=== PATIENT | female | born 1975 | race Caucasian/White ===

== ENCOUNTER 2017-08-05 08:18 | Emergency (ER) | payer OTHER ==
[2017-08-05] MEDS ORDERED: KETOROLAC 30 MG/ML INJ ONE (09:08)
[2017-08-05] MEDS ORDERED: ONDANSETRON 4 MG/2 ML VIAL ONE (09:08)
[2017-08-05] MEDS ORDERED: NA CHLORIDE 0.9% 1,000 ML ONE ×2 (09:09→10:13)
[2017-08-05] MEDS ORDERED: FAMOTIDINE 20 MG/2 ML VIAL IV ONE (09:09)
[2017-08-05 09:12] LABS: Absolute Lymphocytes (CBC) 1.8 K/uL (0.7-4.9); Absolute Monocytes 1.2 K/uL (0.1-1.3); Absolute Neutrophil 6.8 K/uL (1.8-8.0); Basophils % 0.8 % (0-1.3); Eosinophils % 1.3 % (0-4.4); Hematocrit 47.4 % (36.0-45.0); Lymphocytes % 18.1 % (15.3-44.8); MCH 29.2 pg (27.0-35.0); MCV 85.4 fL (80-100); MPV 9.2 fL (7.6-11.3); RBC Red Blood Cell Count 5.55 M/uL (3.86-4.86)
[2017-08-05 09:26] LABS: Potassium 3.6 mEq/L (3.6-5.0)
[2017-08-05 09:32] LABS: Albumin 4.1 g/dL (3.2-5.5); Bilirubin Direct 0.1 mg/dL (0-0.2); Bilirubin Total 0.7 mg/dL (0.3-1.2); Protein, Total 7.4 g/dL (6.0-8.3)
[2017-08-05 11:05] LABS: Urine Blood NEGATIVE (NEG); Urine Glucose NEGATIVE (NEG); Urine Protein 2+ (NEG); Urine Specific Gravity >1.030 (1.005-1.030)
--- NOTE | 2017-08-05 11:29 | EDPHYS ---
Physician Documentation [facility] Name: Zahraa Pagan Age: 42 yrs Sex: Female : 1975 Arrival Date: 08/05/2017 Time: 08:21 Bed 8 Private MD: IZABELLA CRAWFORD ED Physician Ashwin Langston HPI: 08/05 10:33 This 42 yrs old Female presents to ER via Ambulatory with complaints of wa Vomiting/Diarrhea. 10:33 The patient presents to the emergency department with nausea, vomiting, diarrhea, that wa is continuous. Onset: The symptoms/episode began/occurred 3 day(s) ago, denies abd pain to me. admits to sore throat. Possible causes: bad food exposure, sick contacts, none. The symptoms are aggravated by nothing. The symptoms are alleviated by food . Associated signs and symptoms: Pertinent positives: diarrhea, nausea, vomiting, Pertinent negatives: abdominal pain, dysuria, fever. Severity of symptoms: At their worst the symptoms were moderate in the emergency department the symptoms are unchanged. The patient has not experienced similar symptoms in the past. The patient has not recently seen a physician. 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 - Social history:: Patient/guardian denies using alcohol, street drugs, IV drugs. - Family history:: not pertinent. - Hospitalizations: : No recent hospitalization is reported. ROS: 10:35 Constitutional: Negative for fever, chills, and weight loss, Eyes: Negative for injury, wa pain, redness, and discharge, Neck: Negative for injury, pain, and swelling, Cardiovascular: Negative for chest pain, palpitations, and edema, Respiratory: Negative for shortness of breath, cough, wheezing, and pleuritic chest pain, Back: Negative for injury and pain, : Negative for injury, bleeding, discharge, and swelling, MS/Extremity: Negative for injury and deformity, Skin: Negative for injury, rash, and discoloration, Neuro: Negative for headache, weakness, numbness, tingling, and seizure, Psych: Negative for depression, anxiety, suicide ideation, homicidal ideation, and hallucinations. 10:35 ENT: Positive for sore throat, Negative for ear pain, nasal discharge, rhinorrhea. 10:35 Abdomen/GI: Positive for nausea, vomiting, diarrhea, Negative for abdominal pain. 10:35 All other systems are negative. Exam: 10:35 Constitutional: This is a well developed, well nourished patient who is awake, alert, wa and in no acute distress. Head/Face: Normocephalic, atraumatic. Eyes: Pupils equal round and reactive to light, extra-ocular motions intact. Lids and lashes normal. Conjunctiva and sclera are non-icteric and not injected. Cornea within normal limits. Periorbital areas with no swelling, redness, or edema. Neck: Trachea midline, no thyromegaly or masses palpated, and no cervical lymphadenopathy. Supple, full range of motion without nuchal rigidity, or vertebral point tenderness. No Meningismus. Cardiovascular: Regular rate and rhythm with a normal S1 and S2. No gallops, murmurs, or rubs. Normal PMI, no JVD. No pulse deficits. Respiratory: Lungs have equal breath sounds bilaterally, clear to auscultation and percussion. No rales, rhonchi or wheezes noted. No increased work of breathing, no retractions or nasal flaring. Abdomen/GI: Soft, non-tender, with normal bowel sounds. No distension or tympany. No guarding or rebound. No evidence of tenderness throughout. Back: No spinal tenderness. No costovertebral tenderness. Full range of motion. Skin: Warm, dry with normal turgor. Normal color with no rashes, no lesions, and no evidence of cellulitis. MS/ Extremity: Pulses equal, no cyanosis. Neurovascular intact. Full, normal range of motion. Neuro: Awake and alert, GCS 15, oriented to person, place, time, and situation. Cranial nerves II-XII grossly intact. Motor strength 5/5 in all extremities. Sensory grossly intact. Cerebellar exam normal. Normal gait. Psych: Awake, alert, with orientation to person, place and time. Behavior, mood, and affect are within normal limits. 10:35 ENT: Mouth: Oral mucosa: dry, Posterior pharynx: erythema, that is mild. 10:35 Abdomen/GI: Inspection: abdomen appears normal, Bowel sounds: normal, Palpation: abdomen is soft and non-tender, in all quadrants. Vital Signs: 08:37 BP 108 / 68; Pulse 86; Resp 20; Temp 98(O); Pulse Ox 98% on R/A; Weight 127.01 kg; sv Height 6 ft. 2 in. (187.96 cm); Pain 2/10; 09:25 BP 104 / 76; Pulse 84; Resp 18; Pulse Ox 96% on R/A; mh5 11:26 BP 118 / 73; Pulse 86; Resp 18; Pulse Ox 99% ; sv 08:37 Body Mass Index 35.95 (127.01 kg, 187.96 cm) sv MDM: 08:30 Patient medically screened. mo 10:36 Differential diagnosis: Nonspecific abd pain, gastritis, viral gastroenteritis, wa gastroenteritis. 10:37 Data reviewed: vital signs, nurses notes, lab test result(s). Test interpretation: by mo ED physician or midlevel provider: nml cbc and cmp. nml lipase. . Response to treatment: the patient's symptoms have markedly improved after treatment. ED course: still no UA after 1 L NS. will give a second bolus and reassess. pt significantly improved however.. 11:26 Response to treatment: the patient's symptoms have markedly improved after treatment, wa passed po challenge. 11:46 Test interpretation: by ED physician or midlevel provider: UA noted for 5-10 wbc's mo however noted epithelial cells. consider unclean catch. 08/05 08:44 Order name: Basic Metabolic Panel; Complete Time: 10:08/05 08:44 Order name: CBC with Diff; Complete Time: 10:08/05 08:44 Order name: Hepatic Function; Complete Time: 10:08/05 08:44 Order name: Lipase; Complete Time: 10:08/05 08:44 Order name: Urine Microscopic Only; Complete Time: 11:46 08/05 09:08 Order name: Influenza Screen (a \T\ B); Complete Time: 10:11 wa 08/05 09:08 Order name: Strep; Complete Time: 10: mo 08/05 09:42 Order name: Throat Culture [facility] 08/05 10:53 Order name: Urine Dipstick--Ancillary (enter results); Complete Time: 11:25 [facility] 08/05 11:39 Order name: Urine Culture [facility] 08/05 08:44 Order name: IV Saline Lock; Complete Time: 09:18 mo 08/05 08:44 Order name: Labs collected and sent; Complete Time: : mo 08/05 08:44 Order name: Urine Dipstick-Ancillary (obtain specimen); Complete Time: 11: mo 08/05 08:44 Order name: NPO; Complete Time: : mo 08/05 11:02 Order name: PO challenge; Complete Time: 11:38 mo Administered Medications: 09:10 Drug: NS 0.9% 1000 ml Route: IV; Rate: 1 bolus; Site: right antecubital; sv 10:17 Follow up: Response: No adverse reaction; IV Status: Completed infusion; IV Intake: sv 1000ml 09:10 Drug: Zofran 4 mg Route: IVP; Site: right antecubital; sv 10:02 Follow up: Response: No adverse reaction; Marked relief of symptoms sv 09:12 Drug: Pepcid 20 mg Route: IVP; Site: right antecubital; sv 10:02 Follow up: Response: No adverse reaction; Marked relief of symptoms sv 09:14 Drug: TORadol 30 mg Route: IVP; Site: right antecubital; sv 10:02 Follow up: Response: No adverse reaction; Marked relief of symptoms sv 10:17 Drug: NS 0.9% 1000 ml Route: IV; Rate: 1 bolus; Site: right antecubital; sv 11:38 Follow up: Response: No adverse reaction; IV Status: Completed infusion; IV Intake: sv 1000ml Disposition: 08/05/17 11:27 Discharged to Home. Impression: acute vomiting, acute diarrhea. - Condition is Stable. - Prescriptions for Zofran 4 mg Oral Tablet - take 1 tablet by ORAL route every 12 hours As needed; 20 tablet. Pepcid 20 mg Oral Tablet - take 1 tablet by ORAL route once daily for 5 days; 5 tablet. Cipro 500 mg Oral Tablet - take 1 tablet by ORAL route every 12 hours for 3 days; 6 tablet. - Medication Reconciliation Form, Thank You Letter, Antibiotic Education, Prescription Opioid Use form. - Follow up: Private Physician; When: 2 - 3 days; Reason: Recheck today's complaints. - Problem is new. - Symptoms have improved. - Notes: take tylenol if you have pain. take zofran and pepcid as prescribed. advance your diet slowly with soups and soft foods and advance as tolerated. return to ER or see your doctor for any worsening and or worrisome symptoms Signatures: Dispatcher [employer] Brigida Gutierres RN RN sv Appiah, William, MD MD wa Corrections: (The following items were deleted from the chart) 09:18 08:44 Urine Test ordered. coty oneil
--- NOTE | 2017-08-05 11:29 | ER ---
Nurse's Notes [facility] Name: Zahraa Pagan Age: 42 yrs Sex: Female : 1975 Arrival Date: 08/05/2017 Time: 08:21 Bed 8 Private MD: IZABELLA CRAWFORD Diagnosis: acute vomiting;acute diarrhea Presentation: 08/05 08:27 Presenting complaint: Patient states: n/v/d since Tuesday, c/o abd cramping, cough, sv sore throat. Denies dizziness or SOB. Transition of care: patient was not received from another setting of care. Onset of symptoms was August 03, 2017. Care prior to arrival: None. 08:27 Method Of Arrival: Ambulatory sv 08:27 Acuity: MARGY 3 sv Triage Assessment: 08:38 General: Appears in no apparent distress. uncomfortable, well developed, Behavior is sv calm, cooperative, appropriate for age. Pain: Complains of pain in abdomen Pain currently is 2 out of 10 on a pain scale. Quality of pain is described as crampy, Pain began 2-3 days ago. Is intermittent. EENT: No signs and/or symptoms were reported regarding the EENT system. Neuro: Level of Consciousness is awake, alert, obeys commands, Oriented to person, place, time, situation, Moves all extremities. Full function Gait is steady, Speech is normal. Respiratory: Reports cough that is non-productive, pain with cough Respiratory effort is even, unlabored, Respiratory pattern is regular, symmetrical, Denies shortness of breath. GI: Abdomen is obese, Reports cramping, diarrhea, intolerance of food, nausea, vomiting. : No signs and/or symptoms were reported regarding the genitourinary system. Derm: Skin is pale. Musculoskeletal: No signs and/or symptoms reported regarding the musculoskeletal system. 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 - Social history:: Patient/guardian denies using alcohol, street drugs, IV drugs. - Family history:: not pertinent. - Hospitalizations: : No recent hospitalization is reported. Screenin:38 Abuse screen: Denies threats or abuse. Denies injuries from another. Nutritional sv screening: No deficits noted. Tuberculosis screening: No symptoms or risk factors identified. Fall Risk None identified. Assessment: 08:40 Reassessment: See triage assessment. sv 08:40 Reassessment: Pt ambulatory to the bathroom with no difficulty noted to obtain a urine sv sample. 08:42 Reassessment: Dr Langston went to assess pt but pt is currently in the bathroom. sv 09:19 Reassessment: Patient appears in no apparent distress at this time. No changes from sv previously documented assessment. Patient and/or family updated on plan of care and expected duration. Pain level reassessed. Patient is alert, oriented x 3, equal unlabored respirations, skin warm/dry/pink. 10:03 Reassessment: Patient appears in no apparent distress at this time. Patient and/or sv family updated on plan of care and expected duration. Pain level reassessed. Patient is alert, oriented x 3, equal unlabored respirations, skin warm/dry/pink. Patient states feeling better. Patient states symptoms have improved. 11:01 Reassessment: Patient appears in no apparent distress at this time. Patient and/or sv family updated on plan of care and expected duration. Pain level reassessed. Patient is alert, oriented x 3, equal unlabored respirations, skin warm/dry/pink. Patient states feeling better. Patient states symptoms have improved. 11:55 Reassessment: Patient appears in no apparent distress at this time. Patient and/or sv family updated on plan of care and expected duration. Pain level reassessed. Patient is alert, oriented x 3, equal unlabored respirations, skin warm/dry/pink. Patient denies pain at this time. Patient states feeling better. Patient states symptoms have improved. Vital Signs: 08:37 BP 108 / 68; Pulse 86; Resp 20; Temp 98(O); Pulse Ox 98% on R/A; Weight 127.01 kg; sv Height 6 ft. 2 in. (187.96 cm); Pain 2/10; 09:25 BP 104 / 76; Pulse 84; Resp 18; Pulse Ox 96% on R/A; mh5 11:26 BP 118 / 73; Pulse 86; Resp 18; Pulse Ox 99% ; sv 08:37 Body Mass Index 35.95 (127.01 kg, 187.96 cm) sv ED Course: 08:21 Patient arrived in ED. rg4 08:21 IZABELLA CRAWFORD is Private Physician. rg4 08:26 Brigida Pan, HOLLY is Primary Nurse. sv 08:30 Ashwin Langston MD is Attending Physician. wa 08:36 Triage completed. sv 08:38 Arm band placed on right wrist. sv 08:38 Patient has correct armband on for positive identification. Placed in gown. Bed in low sv position. Call light in reach. Pulse ox on. NIBP on. Door closed. Warm blanket given. Head of bed elevated. 09:00 Initial lab(s) drawn, by me, sent to lab. Inserted saline lock: 20 gauge in right sv antecubital area, using aseptic technique. Blood collected. Flushed right antecubital with 5 ml normal saline. 09:19 Flu and/or RSV swab sent to lab. Strep swab sent to lab. sv 10:03 Awaiting re-evaluation by ER provider. sv 11:02 Urine collected: clean catch specimen, herman colored. sv 11:55 No provider procedures requiring assistance completed. IV discontinued, intact, sv bleeding controlled, No redness/swelling at site. Pressure dressing applied. Administered Medications: 09:10 Drug: NS 0.9% 1000 ml Route: IV; Rate: 1 bolus; Site: right antecubital; sv 10:17 Follow up: Response: No adverse reaction; IV Status: Completed infusion; IV Intake: sv 1000ml 09:10 Drug: Zofran 4 mg Route: IVP; Site: right antecubital; sv 10:02 Follow up: Response: No adverse reaction; Marked relief of symptoms sv 09:12 Drug: Pepcid 20 mg Route: IVP; Site: right antecubital; sv 10:02 Follow up: Response: No adverse reaction; Marked relief of symptoms sv 09:14 Drug: TORadol 30 mg Route: IVP; Site: right antecubital; sv 10:02 Follow up: Response: No adverse reaction; Marked relief of symptoms sv 10:17 Drug: NS 0.9% 1000 ml Route: IV; Rate: 1 bolus; Site: right antecubital; sv 11:38 Follow up: Response: No adverse reaction; IV Status: Completed infusion; IV Intake: sv 1000ml Intake: 10:17 IV: 1000ml; Total: 1000ml. sv 11:38 IV: 1000ml; Total: 2000ml. sv 11:56 PO: 50ml (Soft Drink); Total: 2050ml. sv Outcome: 11:27 Discharge ordered by . wa 11:55 Discharged to home ambulatory. sv 11:55 Condition: stable 11:55 Condition: improved 11:55 Discharge instructions given to patient, Instructed on discharge instructions, follow up and referral plans. medication usage, Demonstrated understanding of instructions, follow-up care, medications, Prescriptions given X 3. 11:56 Patient left the ED. sv Signatures: Brigida Pan RN RN sv Garcia, Rubi rg4 Darling Slaughter [facility] Ashwin Langston MD MD wa
[2017-08-05 11:37] LABS: Urine Bacteria >50 /HPF (<20); Urine Culture Reflex Order REFLEXED; Urine RBC <5 /HPF (NONE SEEN)
[2017-08-05 11:38] LABS: Calcium Oxalate Crystals- Ur PRESENT (NONE SEEN); Urine Mucus HEAVY /HPF (NONE SEEN)
[2017-08-05 12:09] VITALS: TEMP 98
[2017-08-05 12:11] VITALS: BP 118/73; O2SAT 99
== END 2017-08-05 11:56 | disposition home or self-care (01) ==
LOC: ER 08:18
DX: R11.10 Vomiting, unspecified (principal); R19.7 Diarrhea, unspecified; I10 Essential (primary) hypertension; F32.9 Major depressive disorder, single episode, unspecified
CPT/HCPCS: 36415; 80048; 80076; 81003; 81015; 83690; 85025; 87070; 87081; 87086; 87088; 87804; 96361; 96374; 96375; 99284; J2405; J7030

== ENCOUNTER 2017-08-07 08:05 | Emergency (ER) | payer OTHER ==
[2017-08-07] MEDS ORDERED: FAMOTIDINE 20 MG/2 ML VIAL IV ONE (08:20)
[2017-08-07] MEDS ORDERED: NA CHLORIDE 0.9% 1,000 ML ONE (08:20)
[2017-08-07] MEDS ORDERED: ONDANSETRON 4 MG/2 ML VIAL ONE (08:20)
[2017-08-07 08:40] LABS: Absolute Lymphocytes (CBC) 2.2 K/uL (0.7-4.9); Absolute Monocytes 0.7 K/uL (0.1-1.3); Absolute Neutrophil 4.7 K/uL (1.8-8.0); Basophils % 1.1 % (0-1.3); Hematocrit 46.4 % (36.0-45.0); Lymphocytes % 28.7 % (15.3-44.8); MCH 29.2 pg (27.0-35.0); MCV 85.6 fL (80-100); Monocytes % 8.3 % (3.3-12.3); RBC Red Blood Cell Count 5.43 M/uL (3.86-4.86)
[2017-08-07 08:51] LABS: Bicarbonate 26 mEq/L (21-31); Glucose Level 110 mg/dL (65-120); Lipase 21 U/L (22-51); Potassium 3.3 mEq/L (3.6-5.0); Sodium Level 139 mEq/L (135-145)
[2017-08-07 08:57] LABS: ALT/SGPT 33 IU/L (10-60); AST/SGOT 33 IU/L (10-42); Albumin 4.2 g/dL (3.2-5.5); Alkaline Phosphatase 49 IU/L (42-121); Amylase Level 36 U/L (28-100); Bilirubin Direct 0.1 mg/dL (0-0.2); Bilirubin Total 0.6 mg/dL (0.3-1.2); Glomerular Filtration Rate > 90 mL/min (=/>90); Protein, Total 7.4 g/dL (6.0-8.3)
[2017-08-07] MEDS ORDERED: PROMETHAZINE 25 MG/ML VIAL ONE (09:03)
--- NOTE | 2017-08-07 09:05 | RAD REPORT ---
EXAM DESCRIPTION: CT - Abdomen Pelvis W Contrast - 08/07/2017 8:51 am CLINICAL HISTORY: Epigastric pain, nausea vomiting and diarrhea, prior hysterectomy, appendectomy an d cholecystectomy COMPARISON: January 2016 TECHNIQUE: Biphasic, helical CT imaging of the abdomen and pelvis was performed following 100 ml non -ionic IV contrast. Oral contrast was given. All CT scans are performed using dose optimization technique as appropriate and may include automated exposure control or mA/KV adjustment according to patient size. FINDINGS: No suspicious findings in the lung bases. Liver shows a mild diffuse fatty infiltration pattern. No focal liver lesion identified. Spleen and p ancreas show no suspicious findings. Cholecystectomy clips are present with no biliary tree dilatatio n. Symmetric renal function is seen with no hydronephrosis or suspicious renal mass. No pyelonephritis o r acute finding. Urinary bladder is contracted limiting assessment. No bladder calculi seen. Uteru s is absent. Ovaries are absent or atrophic. No adnexal mass or acute process. No gastric dilatation or gastric wall thickening. There are multiple prominent fluid-filled distal sm all bowel loops. No obstruction. No acute colon process seen. Appendix is not identified and absent b y history. No free air, free fluid or inflammatory stranding. No mass or bulky lymphadenopathy. A ve ry small incidental umbilical hernia is present. Patient has quite a few mesenteric small lymph nodes . These are more numerous than seen in 2016. Numerous small lymph nodes are present near the GE junct ion as well as periportal and peripancreatic in location. There are numerous small aorto iliac chain lymph nodes present. These lymph nodes are not clearly different in size, number or morphology over t his 1.5 year interval since prior imaging. No suspicious bony findings. IMPRESSION: Prominent fluid-filled distal small bowel loops and multiple mesenteric lymph nodes. Fin dings are most consistent with an nonspecific enteritis. No acute colon process. No bowel obstruction or other emergent finding. Numerous small lymph nodes are seen along the aorto iliac chain, periportal region and peripancreatic region all stable over a 1.5 year interval since prior examination. Cholecystectomy change with no pancreatic or biliary tree acute finding.
[2017-08-07 09:13] LABS: BUN Blood Urea Nitrogen < 5 mg/dL (6-20)
[2017-08-07 09:26] LABS: Glomerular Filtration Rate > 60 mL/min (>60)
[2017-08-07 09:54] LABS: Urine Blood NEGATIVE (NEG); Urine Glucose NEGATIVE (NEG); Urine Protein 2+ (NEG); Urine Specific Gravity 1.025 (1.005-1.030)
[2017-08-07 09:57] LABS: Urine Bacteria 20-50 /HPF (<20); Urine RBC <5 /HPF (NONE SEEN)
[2017-08-07 09:58] LABS: Urine Mucus 1+ /HPF (NONE SEEN)
[2017-08-07 10:00] LABS: Urine Culture Reflex Order NOT NEEDED
[2017-08-07] MEDS ORDERED: KETOROLAC 30 MG/ML INJ ONE (10:02)
--- NOTE | 2017-08-07 10:42 | EDPHYS ---
Physician Documentation [facility] Name: Zahraa Pagan Age: 42 yrs Sex: Female : 1975 Arrival Date: 08/07/2017 Time: 08:06 Bed 5 Private MD: ED Physician Sedrick Danielle HPI: 08/07 08:11 This 42 yrs old Female presents to ER via Ambulatory with complaints of rh1 Nausea/Vomiting/Diarrhea. 08:11 The patient presents to the emergency department with nausea, that is moderate, rh1 diarrhea, that is continuous, abdominal pain, of the epigastric area, right upper quadrant and left upper quadrant, described as burning, sharp, and does not radiate. Onset: The symptoms/episode began/occurred 5 day(s) ago, and became worse yesterday. Possible causes: unknown. The symptoms are aggravated by taking cipro yesterday The symptoms are alleviated by nothing. Associated signs and symptoms: Pertinent positives: abdominal pain, diarrhea, nausea, Pertinent negatives: dysuria, fever, vomiting. Severity of symptoms: At their worst the symptoms were moderate in the emergency department the symptoms are unchanged. The patient has experienced a previous episode, prior to cholecystectomy. The patient has been recently seen at the [facility] Emergency Department, this week. Pt reports began with abdominal pain, N/V/D 5 days ago, seen here and sent home with cipro, zofran, pepcid. Reports after taking cipro yesterday had increased abdominal pain. Reports diarrhea constant and worse with eating/drinking anything. Reports black diarrhea this am, took pepto last night. Denies any fever/chills, urinary symptoms.. 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 - Social history:: Smoking status: Patient/guardian denies using tobacco, Patient/guardian denies using alcohol, street drugs, IV drugs. ROS: 08:11 Constitutional: Negative for fever, chills rh1 08:11 Cardiovascular: Negative for chest pain. 08:11 Respiratory: Negative for cough, shortness of breath. 08:11 Abdomen/GI: Positive for abdominal pain, nausea, vomiting, and diarrhea, black stool today - did take pepto last night, Negative for hematemesis. 08:11 Back: Negative for decreased range of motion, pain at rest, pain with movement, radiated pain. 08:11 : Negative for urinary symptoms, small amounts. 08:11 Neuro: Negative for altered mental status, dizziness. 08:11 All other systems are negative. Exam: 08:21 Constitutional: This is a well developed, well nourished patient who is awake, alert, rh1 and in no acute distress. Head/Face: Normocephalic, atraumatic. ENT: Nares patent. No nasal discharge, no septal abnormalities noted. Tympanic membranes are normal and external auditory canals are clear. Oropharynx with no redness, swelling, or masses, exudates, or evidence of obstruction, uvula midline. Mucous membranes moist. Neck: Trachea midline, and no cervical lymphadenopathy. Supple, full range of motion without nuchal rigidity. No Meningismus. Chest/axilla: Normal chest wall appearance and motion. Nontender with no deformity. No lesions are appreciated. Cardiovascular: Regular rate and rhythm with a normal S1 and S2. No gallops, murmurs, or rubs. No JVD. No pulse deficits. Respiratory: Lungs have equal breath sounds bilaterally, clear to auscultation. No rales, rhonchi or wheezes noted. No increased work of breathing. 08:21 Back: No spinal tenderness. No costovertebral tenderness. Full range of motion. 08:21 Skin: Warm, dry with normal turgor. Normal color with no rashes, no lesions, and no evidence of cellulitis. 08:21 Abdomen/GI: Inspection: abdomen appears normal, bruising, is not seen, distension, is not seen, obese Bowel sounds: normal, in all quadrants, active, all quadrants, Palpation: soft, in all quadrants, moderate abdominal tenderness, in the epigastric area, right upper quadrant and left upper quadrant, rebound tenderness, is not appreciated, voluntary guarding, is elicited in the right upper quadrant and left upper quadrant, involuntary guarding, is not appreciated, Indicators: McBurney's point is not tender, Michael's sign is positive, Rovsing's sign is negative, Liver: no appreciated palpable abnormalities. 08:21 Back: Exam negative for ecchymosis 08:21 Neuro: Orientation: is normal, to person, place \T\ time. Mentation: is normal, lucid, able to follow commands, Motor: is normal, moves all fours, Sensation: is normal, no obvious gross deficits, Gait: is steady, at a normal pace, without difficulty. Vital Signs: 08:18 Resp 18; Weight 127.01 kg; Height 6 ft. 2 in. (187.96 cm); ss 08:29 BP 129 / 79; Pulse 85; Resp 19; Temp 97.8(O); Pulse Ox 97% on R/A; ae1 10:08 BP 108 / 64; Pulse 74; Resp 18; Pulse Ox 95% on R/A; ae1 08:18 Body Mass Index 35.95 (127.01 kg, 187.96 cm) ss MDM: 08:11 Patient medically screened. rh1 10:40 Data reviewed: vital signs, nurses notes, lab test result(s), radiologic studies, CT rh1 scan, and as a result, I will discharge patient. Data interpreted: Pulse oximetry: on room air is 95 %. Interpretation: normal. 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 Response to treatment: the patient's symptoms have markedly improved after treatment. Special discussion: Based on the history and exam findings, there is no indication for further emergent testing or inpatient evaluation. I discussed with the patient/guardian the need to see the cotton farmer for further evaluation of the symptoms. 08/07 08:18 Order name: Amylase, Serum; Complete Time: 09:36 rh1 08/07 08:18 Order name: Basic Metabolic Panel; Complete Time: 09:36 08/07 08:18 Order name: CBC with Diff; Complete Time: 08:43 08/07 08:18 Order name: Creatinine for Radiology; Complete Time: 09:36 08/07 08:18 Order name: Hepatic Function; Complete Time: 09:36 08/07 08:18 Order name: Lipase; Complete Time: 09:36 08/07 08:18 Order name: Urine Microscopic Only; Complete Time: 10:03 08/07 08:44 Order name: Guiac; Complete Time: 09:36 08/07 08:44 Order name: Occult Blood [facility] 08/07 09:29 Order name: Urine Dipstick--Ancillary (enter results); Complete Time: 09:55 ag 08/07 08:18 Order name: Urine Test (obtain specimen); Complete Time: 09:10 08/07 08:18 Order name: IV Saline Lock; Complete Time: 08:27 08/07 08:18 Order name: Labs collected and sent; Complete Time: 08:27 08/07 08:18 Order name: Urine Dipstick-Ancillary (obtain specimen); Complete Time: 10:50 08/07 08:18 Order name: CT Abd/Pelvis - W/Contrast; Complete Time: 09:08 rh Administered Medications: 08:23 Drug: NS 0.9% 1000 ml Route: IV; Rate: 1000 ml; Site: right antecubital; ae1 11:05 Follow up: IV Status: Completed infusion; IV Intake: 1000ml ss 08:23 Drug: Zofran 4 mg Route: IVP; Site: right antecubital; ae1 10:32 Follow up: Response: No adverse reaction hj 08:25 Drug: Pepcid 20 mg Route: IVP; Site: right antecubital; ae1 10:32 Follow up: Response: No adverse reaction hj 09:02 Drug: Phenergan 12.5 mg Route: IVP; Site: right antecubital; hj 09:42 Follow up: Response: No adverse reaction hj 10:00 Drug: TORadol 30 mg Route: IVP; Site: right antecubital; ae1 11:05 Follow up: Response: No adverse reaction; Pain is decreased ss 10:54 Drug: Potassium Chloride 40 mEq Route: PO; ss 11:05 Follow up: Response: Medication administered at discharge. Disposition: 13:56 Co-signature as Attending Physician, Sedrick Danielle MD I agree with the assessment and kdr plan of care. Disposition: 08/07/17 10:41 Discharged to Home. Impression: Other abdominal pain, Diarrhea, unspecified. - Condition is Stable. - Discharge Instructions: Abdominal Pain, Adult, Food Choices to Help Relieve Diarrhea, Adult, Diarrhea, Gastroesophageal Reflux Disease, Adult, Nausea and Vomiting. - Prescriptions for Protonix 40 mg Oral Tablet - take 1 tablet by ORAL route once daily; 30 tablet. promethazine 25 mg Oral Tablet - take 1 tablet by ORAL route every 6 hours As needed; 12 tablet. - Medication Reconciliation Form, Thank You Letter, Antibiotic Education, Prescription Opioid Use form. - Follow up: Krishna Hardin MD; When: 1 - 2 days; Reason: Further diagnostic work-up, Recheck today's complaints, Continuance of care. Follow up: Emergency Department; When: As needed; Reason: Fever > 102 F, If symptoms return, Trouble breathing, Worsening of condition. - Problem is new. - Symptoms have improved. - Notes: 1. Start culturelle from over the counter, take daily. Signatures: Dispatcher [employer] EDMS Sedrick Danielle MD MD [facility] Myrna Barraza RN RN Kiki Carter, HARVE[employer] P[employer]CE GOODS PACKER 1 Romie Wilkinson RN RN Luc Ortiz RN RN ae1 Corrections: (The following items were deleted from the chart) 08:22 08:11 Pt reports began with abdominal pain, N/V/D 5 days ago, seen here and sent home 1 with cipro, zofran, pepcid. Reports after taking cipro yesterday had increased abdominal pain. Reports diarrhea constant and worse with eating/drinking anything. Denies any fever/chills, urinary symptoms.. rh1 08:23 08:11 The patient has not experienced similar symptoms in the past, 1 rh1 08:25 08:14 Social history: Smoking status: Patient/guardian denies using tobacco, rh1
--- NOTE | 2017-08-07 10:42 | ER ---
Nurse's Notes [facility] Name: Zahraa Pagan Age: 42 yrs Sex: Female : 1975 Arrival Date: 08/07/2017 Time: 08:06 Bed 5 Private MD: Diagnosis: Other abdominal pain;Diarrhea, unspecified Presentation: 08/07 08:14 Presenting complaint: Patient states: N/V/D and epigastric burning x 5 days. Seen here ss in ER Tuesday and given medications that have not seemed to help so far. Transition of care: patient was not received from another setting of care. Onset of symptoms was August 03, 2017. Care prior to arrival: None. 08:14 Method Of Arrival: Ambulatory ss 08:14 Acuity: MARGY 3 ss Triage Assessment: 08:29 General: Appears in no apparent distress. uncomfortable, Behavior is calm, cooperative, hj appropriate for age. Pain: Complains of pain in left upper quadrant and right upper quadrant and epigastric area. GI: Reports lower abdominal pain, upper abdominal pain, diarrhea, nausea. 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 - Social history:: Smoking status: Patient/guardian denies using tobacco, Patient/guardian denies using alcohol, street drugs, IV drugs. Screenin:28 Abuse screen: Denies threats or abuse. Denies injuries from another. Nutritional hj screening: No deficits noted. Tuberculosis screening: No symptoms or risk factors identified. Fall Risk None identified. Assessment: 08:20 General: Appears in no apparent distress. uncomfortable, obese, Behavior is calm, hj cooperative, appropriate for age. Pain: Complains of pain in left upper quadrant and right upper quadrant and epigastric area. Neuro: Level of Consciousness is awake, alert, obeys commands, Oriented to person, place, time, situation, Appropriate for age. Cardiovascular: Capillary refill < 3 seconds Patient's skin is warm and dry. Respiratory: Airway is patent Respiratory effort is even, unlabored, Respiratory pattern is regular, symmetrical. : No signs and/or symptoms were reported regarding the genitourinary system. EENT: No signs and/or symptoms were reported regarding the EENT system. Derm: No signs and/or symptoms reported regarding the dermatologic system. Musculoskeletal: No signs and/or symptoms reported regarding the musculoskeletal system. 08:29 GI: Abdomen is non-distended. hj 08:31 Reassessment: pt states: "do you think they will order EGD?" provider notified. hj 08:32 Reassessment: provider in room for POC;. hj 08:33 Reassessment: Patient and/or family updated on plan of care and expected duration. Pain hj level reassessed. Patient is alert, oriented x 3, equal unlabored respirations, skin warm/dry/pink. wheeled to CT;. 10:05 Reassessment: Patient c/o pain, states last time she was here, she had toradol and it ae1 was effective. Provider notified, new orders received. Vital Signs: 08:18 Resp 18; Weight 127.01 kg; Height 6 ft. 2 in. (187.96 cm); ss 08:29 BP 129 / 79; Pulse 85; Resp 19; Temp 97.8(O); Pulse Ox 97% on R/A; ae1 10:08 BP 108 / 64; Pulse 74; Resp 18; Pulse Ox 95% on R/A; ae1 08:18 Body Mass Index 35.95 (127.01 kg, 187.96 cm) ED Course: 08:06 Patient arrived in ED. tw3 08:07 Romie Wilkinson, HOLLY is Primary Nurse. hj 08:11 Kiki Carter NP is PHCP. rh1 08:11 Sedrick Danielle MD is Attending Physician. rh1 08:16 Triage completed. ss 08:18 Arm band placed on right wrist. ss 08:20 Initial lab(s) drawn, by me, sent to lab. Inserted saline lock: 20 gauge in right hj antecubital area, using aseptic technique. Blood collected. 08:29 Patient has correct armband on for positive identification. Placed in gown. Bed in low hj position. Call light in reach. Side rails up X 1. Adult w/ patient. 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 ae1 08:51 CT completed. Patient moved to CT via wheelchair. Patient moved back from CT. sw 08:52 CT Abd/Pelvis - W/Contrast In Process Unspecified. EDMS 09:46 Primary Nurse role handed off by Romie Wilkinson, RN jl7 09:46 Sherine Knight, HOLLY is Primary Nurse. jl7 10:41 Krishna Hardin MD is Referral Physician. rh1 11:06 IV discontinued, intact, bleeding controlled, No redness/swelling at site. Pressure ss dressing applied. Administered Medications: 08:23 Drug: NS 0.9% 1000 ml Route: IV; Rate: 1000 ml; Site: right antecubital; ae1 11:05 Follow up: IV Status: Completed infusion; IV Intake: 1000ml ss 08:23 Drug: Zofran 4 mg Route: IVP; Site: right antecubital; ae1 10:32 Follow up: Response: No adverse reaction hj 08:25 Drug: Pepcid 20 mg Route: IVP; Site: right antecubital; ae1 10:32 Follow up: Response: No adverse reaction hj 09:02 Drug: Phenergan 12.5 mg Route: IVP; Site: right antecubital; hj 09:42 Follow up: Response: No adverse reaction hj 10:00 Drug: TORadol 30 mg Route: IVP; Site: right antecubital; ae1 11:05 Follow up: Response: No adverse reaction; Pain is decreased ss 10:54 Drug: Potassium Chloride 40 mEq Route: PO; ss 11:05 Follow up: Response: Medication administered at discharge. ss Intake: 11:05 IV: 1000ml; Total: 1000ml. ss Outcome: 10:41 Discharge ordered by . rh1 11:06 Discharged to home ambulatory. ss 11:06 Condition: good 11:06 Discharge instructions given to patient, Instructed on discharge instructions, follow up and referral plans. medication usage, Demonstrated understanding of instructions, follow-up care, medications, Prescriptions given X 2. 11:09 Patient left the ED. ss Signatures: Dispatcher [employer] EDMS Myrna Barraza RN RN Kathleen Byrd Rachel, SECURITIES CONSULTANT SECURITIES CONSULTANT rh1 Romie Wilkinson RN RN Luc Crain RN RN ae1 Sherine Knight RN RN jl7 Jennifer Hernandez tw3 Corrections: (The following items were deleted from the chart) 08:25 08:14 Social history: Smoking status: Patient/guardian denies using tobacco, [facility] 11:06 11:06 Patient did not have IV access during this emergency room visit. ss
[2017-08-07] MEDS ORDERED: POTASSIUM CL SA 10 MEQ TAB PO ONE (10:50)
[2017-08-07 11:21] VITALS: TEMP 97.8
[2017-08-07 11:23] VITALS: BP 108/64; O2SAT 95
== END 2017-08-07 11:09 | disposition home or self-care (01) ==
LOC: ER 08:05
DX: R19.7 Diarrhea, unspecified (principal); I10 Essential (primary) hypertension; F32.9 Major depressive disorder, single episode, unspecified; F90.9 Attention-deficit hyperactivity disorder, unspecified type
CPT/HCPCS: 36415; 74177; 80048; 80076; 81003; 81015; 82150; 82272; 83690; 85025; 96361; 96374; 96375; 99284; J2405; J2550; J7030; Q9967

== ENCOUNTER 2017-08-28 12:01 | Emergency (ER) | payer OTHER ==
[2017-08-28] MEDS ORDERED: MAGNE/ALUM HYDROXD 30 ML UCUP ONE (13:11)
[2017-08-28] MEDS ORDERED: ONDANSETRON 4 MG/2 ML VIAL ONE (13:12)
[2017-08-28] MEDS ORDERED: MORPHINE 4 MG/ML SYR ONE (13:12)
[2017-08-28 13:27] LABS: Absolute Monocytes 0.9 K/uL (0.1-1.3); Basophils % 0.2 % (0-1.3); Hematocrit 44.8 % (36.0-45.0); MCH 29.1 pg (27.0-35.0); MCV 86.6 fL (80-100); MPV 9.2 fL (7.6-11.3); Monocytes % 11.3 % (3.3-12.3); RBC Red Blood Cell Count 5.17 M/uL (3.86-4.86)
[2017-08-28 13:37] LABS: Potassium 3.8 mEq/L (3.6-5.0)
[2017-08-28 13:43] LABS: Albumin 4.3 g/dL (3.2-5.5); Bilirubin Direct 0.1 mg/dL (0-0.2); Protein, Total 7.4 g/dL (6.0-8.3)
[2017-08-28] MEDS ORDERED: ZIPRASIDONE MESYLA 20 MG/VIAL IM ONE (13:59)
[2017-08-28] MEDS ORDERED: WATER FOR INJ,STERILE 10 ML ONE (14:00)
[2017-08-28] MEDS ORDERED: FAMOTIDINE 20 MG/2 ML VIAL IV ONE (14:19)
[2017-08-28 14:49] LABS: Urine Bacteria NONE SEEN /HPF (<20); Urine Culture Reflex Order NOT NEEDED; Urine RBC NONE SEEN /HPF (NONE SEEN)
--- NOTE | 2017-08-28 15:18 | EDPHYS ---
Physician Documentation [facility] Name: Zahraa Pagan Age: 42 yrs Sex: Female : 1975 Arrival Date: 08/28/2017 Time: 12:02 Bed 7 Private MD: ED Physician Jan Welch HPI: 08/28 12:56 This 42 yrs old Female presents to ER via Ambulatory with complaints of rn Abdominal Pain, Nausea. 12:56 The patient presents to the emergency department with nausea, abdominal pain, of the rn right upper quadrant. Onset: The symptoms/episode began/occurred 3 week(s) ago. Possible causes: unknown. Associated signs and symptoms: Pertinent positives: abdominal pain, nausea, Pertinent negatives: constipation, diarrhea, dysuria, fever, GI bleeding. Severity of symptoms: At their worst the symptoms were mild in the emergency department the symptoms are unchanged. The patient has experienced similar episodes in the past. Reports RUQ pain for 3 weeks, intermittent, comes in waves, has had gallbladder removed, has UGI scope tomorrow AM, states pain returned today so came in for reeval, seen here 1 week ago with no acute findings on CT scan. . 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 - Social history:: Smoking status: Patient/guardian denies using tobacco. - Family history:: not pertinent. - Hospitalizations: : No recent hospitalization is reported. ROS: 12:56 Constitutional: Negative for fever, chills, and weight loss, Eyes: Negative for injury, rn pain, redness, and discharge, Cardiovascular: Negative for chest pain, palpitations, and edema, Respiratory: Negative for shortness of breath, cough, wheezing, and pleuritic chest pain, Abdomen/GI: Negative for vomiting, diarrhea, and constipation, Back: Negative for injury and pain, MS/Extremity: Negative for injury and deformity, Skin: Negative for injury, rash, and discoloration, Neuro: Negative for headache, weakness, numbness, tingling, and seizure. Exam: 12:56 Constitutional: This is a well developed, well nourished patient who is awake, alert, rn no acute distress Head/Face: Normocephalic, atraumatic. Abdomen/GI: soft, mild epigastric and RUQ tenderness, no rebound Back: No spinal tenderness. No costovertebral tenderness. Full range of motion. MS/ Extremity: Pulses equal, no cyanosis. Neurovascular intact. Full, normal range of motion. Equal circumference. Neuro: Awake and alert, GCS 15, oriented to person, place, time, and situation. Cranial nerves II-XII grossly intact. Motor strength 5/5 in all extremities. Sensory grossly intact. Cerebellar exam normal. Normal gait. Vital Signs: 12:17 BP 158 / 93; Pulse 87; Resp 20; Temp 97.4; Pulse Ox 99% on R/A; Weight 136.08 kg; aj Height 6 ft. 2 in. (187.96 cm); Pain 10/10; 13:30 BP 145 / 89; Pulse 86; Resp 16 S; Pulse Ox 98% on R/A; aa5 15:00 BP 146 / 84; Pulse 83; Resp 16 S; Pulse Ox 98% on R/A; aa5 12:17 Body Mass Index 38.52 (136.08 kg, 187.96 cm) aj MDM: 12:19 Patient medically screened. rn 15:15 Differential diagnosis: Nonspecific abd pain, gastritis, pancreatitis, viral rn gastroenteritis, gastroenteritis. Data reviewed: vital signs, nurses notes, old medical records, lab test result(s), and as a result, I will discharge patient. Counseling: I had a detailed discussion with the patient and/or guardian regarding: the historical points, exam findings, and any diagnostic results supporting the discharge/admit diagnosis, lab results, the need for outpatient follow up, to return to the emergency department if symptoms worsen or persist or if there are any questions or concerns that arise at home. Response to treatment: the patient's symptoms have mildly improved after treatment, and as a result, I will discharge patient. Special discussion: Based on the patient's Hx, exam, and Dx evaluation, there is no indication for emergent surgery or inpatient Tx. It is understood by the patient/guardian that if the Sx's persist or worsen they need to return immediately for re-evaluation. I discussed with the patient/guardian in detail that at this point there is no indication for admission to the hospital. It is understood, however, that if the symptoms persist or worsen the patient needs to return immediately for re-evaluation. Based on the history and exam findings, there is no indication for further emergent testing or inpatient evaluation. I discussed with the patient/guardian the need to see the lieutenant colonel for further evaluation of the symptoms. ED course: Mild improvement, no change in blood tests, has appt for outpt scope tomorrow, most likely acid related/ulcers vs IBD as has family hx of. . 08/28 12:32 Order name: Basic Metabolic Panel; Complete Time: 13:50 08/28 12:32 Order name: CBC with Diff; Complete Time: 13:50 08/28 12:32 Order name: Creatinine for Radiology; Complete Time: 13:50 rn 08/28 12:32 Order name: Hepatic Function; Complete Time: 13:50 rn 08/28 12:32 Order name: Lipase; Complete Time: 13:50 rn 08/28 12:32 Order name: Urine Microscopic Only 08/28 12:32 Order name: IV Saline Lock; Complete Time: 13:21 rn 08/28 12:32 Order name: Davie Screen Profile; Complete Time: 14:17 rn 08/28 14:29 Order name: Urine Dipstick--Ancillary (enter results) 08/28 12:32 Order name: Labs collected and sent; Complete Time: 13:20 rn 08/28 12:32 Order name: Urine Dipstick-Ancillary (obtain specimen); Complete Time: 14:24 rn Administered Medications: 13:15 Drug: morphine 4 mg Route: IVP; Site: right antecubital; aa5 13:20 Follow up: Response: No adverse reaction aa5 13:15 Drug: GI Cocktail without - (Maalox Suspension 30 ml, Lidocaine Liquid 2 % 15 aa5 ml) Route: PO; 13:20 Follow up: Response: No adverse reaction aa5 13:15 Drug: Zofran 4 mg Route: IVP; Site: right antecubital; aa5 13:20 Follow up: Response: No adverse reaction aa5 14:20 Drug: Pepcid 20 mg Route: IVP; Site: right antecubital; jl7 14:40 Follow up: Response: No adverse reaction aa5 Disposition: 08/28/17 15:17 Discharged to Home. Impression: Upper abdominal pain, unspecified. - Condition is Stable. - Discharge Instructions: Abdominal Pain, Adult. - Medication Reconciliation Form, Thank You Letter, Antibiotic Education, Prescription Opioid Use form. - Follow up: Krishna Hardin MD; When: Tomorrow; Reason: Recheck today's complaints, Re-evaluation by your physician. - Problem is an ongoing problem. - Symptoms have improved. Signatures: Dispatcher [employer] EDMS Melissa Franco RN RN aj Nieto, Roman, MD MD rn Calderon, Audri RN HOLLY shook5 Sherine Knight RN HOLLY jl7 Corrections: (The following items were deleted from the chart) 14:24 12:32 Urine Test ordered. holly lyman 15:37 15:17 08/28/2017 15:17 Discharged to Home. Impression: Upper abdominal pain, aa5 unspecified. Condition is Stable. Forms are Medication Reconciliation Form, Thank You Letter, Antibiotic Education, Prescription Opioid Use. Follow up: Krishna Hardin; When: Tomorrow; Reason: Recheck today's complaints, Re-evaluation by your physician. Problem is an ongoing problem. Symptoms have improved. rn
--- NOTE | 2017-08-28 15:18 | ER ---
Nurse's Notes [facility] Name: Zahraa Pagan Age: 42 yrs Sex: Female : 1975 Arrival Date: 08/28/2017 Time: 12:02 Bed 7 Private MD: Diagnosis: Upper abdominal pain, unspecified Presentation: 08/28 12:15 Presenting complaint: Patient states: Right abdominal pain that started 3 weeks ago. aj Patient reports she has been seen in this ER and has followed up with GI. Has appointment for scope in AM. Reports pain is severe and uncontrolled with meds. Transition of care: patient was not received from another setting of care. Onset of symptoms was August 07, 2017. Initial Sepsis Screen: Does the patient meet any 2 criteria? No. Patient's initial sepsis screen is negative. Does the patient have a suspected source of infection? No. Patient's initial sepsis screen is negative. Care prior to arrival: None. 12:15 Method Of Arrival: Ambulatory aj 12:15 Acuity: MARGY 3 aj Triage Assessment: 12:17 General: Appears in no apparent distress. uncomfortable, obese, Behavior is calm, aj cooperative. Pain: Complains of pain in anterior aspect of right lateral abdomen and right upper quadrant Pain currently is 10 out of 10 on a pain scale. Neuro: Level of Consciousness is awake, alert, obeys commands, Oriented to person, place, time, situation, Appropriate for age. Respiratory: Airway is patent Respiratory effort is even, unlabored, Respiratory pattern is regular, symmetrical. GI: Reports upper abdominal pain, nausea. Derm: Skin is intact, is healthy with good turgor, Skin is pink, warm \\T\\ dry. normal. 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 - Social history:: Smoking status: Patient/guardian denies using tobacco. - Family history:: not pertinent. - Hospitalizations: : No recent hospitalization is reported. Screenin:20 Abuse screen: Denies threats or abuse. Nutritional screening: No deficits noted. aa5 Tuberculosis screening: No symptoms or risk factors identified. Fall Risk None identified. Assessment: 12:25 General: Appears uncomfortable, Behavior is calm, cooperative. Pain: Complains of pain aa5 in right upper quadrant Pain does not radiate. Pain currently is 10 out of 10 on a pain scale. Quality of pain is described as squeezing, "bubbles" Pain began 3 weeks ago Is continuous. Neuro: Level of Consciousness is awake, alert, obeys commands, Oriented to person, place, time, situation. Cardiovascular: Heart tones S1 S2 present Rhythm is regular. Respiratory: Airway is patent Respiratory effort is even, unlabored, Respiratory pattern is regular, symmetrical. GI: Abdomen is round non-distended, Bowel sounds present X 4 quads. Abd is soft X 4 quads Abdomen is tender to palpation in right upper quadrant Reports "I had vomiting and diarrhea the first week but I haven't had any for the last 2 weeks". : No signs and/or symptoms were reported regarding the genitourinary system. EENT: No signs and/or symptoms were reported regarding the EENT system. Derm: Skin is pink, warm \\T\\ dry. Musculoskeletal: Range of motion: intact in all extremities. 13:30 Reassessment: Patient and/or family updated on plan of care and expected duration. Pain aa5 level reassessed. Patient is alert, oriented x 3, equal unlabored respirations, skin warm/dry/pink. Patient denies pain at this time. Patient states feeling better. 13:50 Reassessment: pt c/o of indigestion, provider notified, no new orders received at this jl7 time. 15:30 Reassessment: Patient is alert, oriented x 3, equal unlabored respirations, skin aa5 warm/dry/pink. Patient states feeling better. Vital Signs: 12:17 BP 158 / 93; Pulse 87; Resp 20; Temp 97.4; Pulse Ox 99% on R/A; Weight 136.08 kg; aj Height 6 ft. 2 in. (187.96 cm); Pain 10/10; 13:30 BP 145 / 89; Pulse 86; Resp 16 S; Pulse Ox 98% on R/A; aa5 15:00 BP 146 / 84; Pulse 83; Resp 16 S; Pulse Ox 98% on R/A; aa5 12:17 Body Mass Index 38.52 (136.08 kg, 187.96 cm) aj ED Course: 12:02 Patient arrived in ED. sb2 12:16 Triage completed. aj 12:17 Arm band placed on right wrist. Patient placed in an exam room. aj 12:18 Jan Welch MD is Attending Physician. rn 12:19 Bailee Berg, HOLLY is Primary Nurse. aa5 12:30 Patient has correct armband on for positive identification. Bed in low position. Call jl7 light in reach. Side rails up X 1. Pulse ox on. NIBP on. 12:50 Inserted saline lock: 20 gauge in right antecubital area, using aseptic technique. aa5 Blood collected. IV inserted by TEREZA Prakash. 15:16 Krishna Hardin MD is Referral Physician. rn 15:30 No provider procedures requiring assistance completed. aa5 15:30 IV discontinued, intact, bleeding controlled, No redness/swelling at site. Pressure aa5 dressing applied. Administered Medications: 13:15 Drug: morphine 4 mg Route: IVP; Site: right antecubital; aa5 13:20 Follow up: Response: No adverse reaction aa5 13:15 Drug: GI Cocktail without - (Maalox Suspension 30 ml, Lidocaine Liquid 2 % 15 aa5 ml) Route: PO; 13:20 Follow up: Response: No adverse reaction aa5 13:15 Drug: Zofran 4 mg Route: IVP; Site: right antecubital; aa5 13:20 Follow up: Response: No adverse reaction aa5 14:20 Drug: Pepcid 20 mg Route: IVP; Site: right antecubital; jl7 14:40 Follow up: Response: No adverse reaction aa5 Outcome: 15:17 Discharge ordered by MD. rn 15:30 Discharged to home ambulatory, with family. aa5 15:30 Condition: improved 15:30 Discharge instructions given to patient, Instructed on discharge instructions, follow up and referral plans. Demonstrated understanding of instructions, follow-up care. 15:37 Patient left the ED. aa5 Signatures: Melissa Franco RN RN Jan Childers MD MD rn Calderon, Audri, RN RN aa5 Sherine Knight RN RN jl7 Haylee Dixon sb2
[2017-08-28 15:41] VITALS: BP 158/93; TEMP 97.4; O2SAT 99
[2017-08-28 16:22] LABS: Urine Blood NEGATIVE (NEG); Urine Glucose NEGATIVE (NEG); Urine Protein NEGATIVE (NEG); Urine Specific Gravity 1.005 (1.005-1.030)
== END 2017-08-28 15:37 | disposition home or self-care (01) ==
LOC: ER 12:01
DX: R10.11 Right upper quadrant pain (principal); I10 Essential (primary) hypertension; F32.9 Major depressive disorder, single episode, unspecified
CPT/HCPCS: 36415; 80048; 80076; 81003; 81015; 83690; 85025; 86308; 96374; 96375; 99284; J2405; J3486